=== PATIENT | female | born 1990 | race Two or more races ===

== ENCOUNTER → 2024-12-16 | Outpatient (CLI) | payer BC, SELFPAY ==
[2024-12-16 07:45] LABS: Collection Type, Urine Clean Catch; RBC,Urine 0 /hpf (0-3)
[2024-12-16 08:24] LABS: Glucose Estimated Average 120 mg/dL (80-131); Hemoglobin A1C 5.8 % Hgb (4.8-6.0)
[2024-12-16 08:30] LABS: Folate 19.60 ng/mL (>5.38); Vitamin B12 603 pg/mL (211-911); Vitamin D 25 Hydroxy Total 30.2 ng/mL (7.3-40.2)
[2024-12-16 08:35] LABS: Alanine Aminotransferase 26 U/L (10-49); Albumin, Serum 4.8 gm/dL (3.5-5.0); Albumin/Globulin Ratio 1.9 (1.2-2.2); Alkaline Phosphatase 42 U/L (46-116); Anion Gap 9 (7-16); Aspartate Amino Transferase 15 U/L (0-34); BUN/Creatinine Ratio 16 Ratio (12-20); Bilirubin,Total 0.3 mg/dL (0.3-1.2); Blood Urea Nitrogen 11 mg/dL (9-23); Calcium 9.5 mg/dL (8.3-10.6); Calcium (Corrected) 9.5 mg/dL (8.5-10.1); Carbon Dioxide 28.1 mMol/L (20.0-31.0); Cardiac Risk Estimate 4.8 RATIO (3.7-5.6); Chloride 107 mMol/L (98-107); Cholesterol 184 mg/dL (132-200); Creatinine (Component) 0.7 mg/dL (0.6-1.3); Free T3 3.5 pg/mL (2.3-4.2); Free T4 (Free Thyroxine) 1.23 ng/dL (0.89-1.76); Globulin 2.5 gm/dL (2.3-3.5); Glucose 120 mg/dL (74-106); HDL Cholesterol 38 mg/dL (40-60); LDL Cholesterol,Calculated 119 mg/dL (0-130); Osmolality,Calculated 287 (275-295); Potassium 4.1 mMol/L (3.4-5.1); Sodium 144 mMol/L (136-145); Thyroid Stimulating Hormone 2.75 uIU/mL (0.55-4.78); Total Protein 7.3 gm/dL (5.7-8.2); Triglycerides 137 mg/dL (30-150); eGFR > 60 See Note
[2024-12-16 08:56] LABS: Basophils # (Auto) 0.0 Thou/mm3 (0.0-0.2); Basophils % (Auto) 0 % (0-2.5); Eosinophils # (Auto) 0.2 Thou/mm3 (0.0-0.5); Eosinophils % (Auto) 3 % (0-10); Hematocrit 41.7 % (36.0-46.0); Hemoglobin 13.6 g/dL (12.0-16.0); Immature Granulocytes Auto 0.01 Thou/mm3 (0.00-0.00); Lymphocytes # (Auto) 2.9 Thou/mm3 (1.0-4.8); Lymphocytes % (Auto) 42 % (10-50); Mean Corpuscular HGB Conc 32.6 g/dl (31.0-37.0); Mean Corpuscular Hemoglobin 28.0 pg (25.0-35.0); Mean Corpuscular Volume 86 fL (80-100); Monocytes # (Auto) 0.4 Thou/mm3 (0.0-0.8); Monocytes % (Auto) 6 % (0-12); Neutrophils # (Auto) 3.4 Thou/mm3 (1.8-7.7); Neutrophils % (Auto) 49 % (37-80); Nucleated Red Blood Cell # 0.00 Thou/mm3 (0.00-0.00); Nucleated Red Blood Cell % 0 /100 WBC (0); Platelet Count 282 Thou/mm3 (140-440); RDW Standard Deviation 39.4 fL (36.4-46.3); Red Blood Count 4.85 Miln/mm3 (4.00-5.20); White Blood Count 6.9 Thou/mm3 (3.6-11.0)
[2024-12-16 11:17] LABS: Bacteria,Urine Rare; Bilirubin,Urine Negative (Negative); Blood,Urine Negative (Negative); Clarity,Urine Clear (Clear/Hazy); Color,Urine Lt-Yellow (Lt Yel-Yel); Culture Indicated,Urine Not Indicated; Glucose, Urine Negative (Negative); Ketones,Urine Negative (Negative); Leukocyte Esterase,Urine Negative (Negative); Nitrite,Urine Negative (Negative); PH,Urine 5.5 (5.0-7.0); Protein,Urine Negative (Neg - Trace); Specific Gravity,Urine 1.026 (1.001-1.035); Squamous Epithelial Cell,Urine 8 /hpf (0-5); Urobilinogen,Urine Negative mg/dL (0.0-1.0); WBC,Urine 1 /hpf (0-5)
== END | disposition home or self-care (01) ==
LOC: COPL 06:51
PROVIDERS: PCP Nurse Practitioner; Referring Provider Nurse Practitioner; Visit Provider Nurse Practitioner
DX: Z13.1 Encounter for screening for diabetes mellitus (principal); R53.83 Other fatigue
CPT/HCPCS: 36415; 80053; 80061; 81001; 82306; 82607; 82746; 83036; 84439; 84443; 84481; 85025

== ENCOUNTER → 2025-01-10 | Outpatient (CLI) | payer OTHER, BC, SELFPAY ==
[2025-01-10 12:16] LABS: Thyroid Stimulating Hormone 1.24 uIU/mL (0.55-4.78)
[2025-01-10 12:17] LABS: Follicle Stimulating Hormone 3.06 mIU/mL (See Note)
[2025-01-15 06:20] LABS: Luteinizing Hormone* 6.7 mIU/mL; Prolactin* 16.4 ng/mL
== END | disposition home or self-care (01) ==
PROVIDERS: PCP Physician Assistant; Referring Provider Physician Assistant; Visit Provider Physician Assistant
DX: R30.0 Dysuria (principal); N91.2 Amenorrhea, unspecified
CPT/HCPCS: 36415; 83001; 83002; 84146; 84443; 87086

== ENCOUNTER → 2025-01-28 | Outpatient (CLI) | payer OTHER, BC, SELFPAY ==
--- NOTE | 2025-01-28 16:15 | XR_ITS ---
Examination: Pelvic ultrasound, transabdominal, complete Technique: Transabdominal ultrasound of the pelvis performed using grayscale imaging Date and time of exam: January 28, 2025, 1621 hours INDICATIONS: Amenorrhea several months FINDINGS: Uterus 9.8 cm, uterine body area of fibroid degeneration 15 x 16 x 18 mm. Endometrial stripe 0.4 cm Right ovary 3.8 cm arterial flow 23 x 22 mm cyst. Left ovary 2.7 cm arterial flow to 11 mm follicular cyst IMPRESSION: Uterine body area of fibroid degeneration 15 x 16 x 18 mm Right ovarian simple cyst 23 x 17 x 22 mm
== END | disposition home or self-care (01) ==
LOC: CDIM 16:05
PROVIDERS: Referring Provider Physician Assistant; Visit Provider Physician Assistant
DX: D25.9 Leiomyoma of uterus, unspecified (principal); N83.291 Other ovarian cyst, right side
CPT/HCPCS: 76856

== ENCOUNTER → 2025-05-05 | Outpatient (CLI) | payer OTHER, BC, SELFPAY ==
[2025-05-05 14:45] LABS: Alanine Aminotransferase 65 U/L (10-49); Albumin, Serum 5.0 gm/dL (3.5-5.0); Alkaline Phosphatase 46 U/L (46-116); Anion Gap 12 (7-16); Aspartate Amino Transferase 30 U/L (0-34); BUN/Creatinine Ratio 20 Ratio (12-20); Bilirubin,Direct < 0.1 mg/dL (0.0-0.3); Bilirubin,Total 0.3 mg/dL (0.3-1.2); Blood Urea Nitrogen 12 mg/dL (9-23); Calcium 9.6 mg/dL (8.3-10.6); Carbon Dioxide 26.2 mMol/L (20.0-31.0); Chloride 104 mMol/L (98-107); Creatinine (Component) 0.6 mg/dL (0.6-1.3); Glucose 89 mg/dL (74-106); Osmolality,Calculated 281 (275-295); Phosphorous 4.5 mg/dL (2.4-5.1); Potassium 4.1 mMol/L (3.4-5.1); Sodium 142 mMol/L (136-145); Total Protein 7.5 gm/dL (5.7-8.2); eGFR > 60 See Note
== END | disposition home or self-care (01) ==
LOC: COPL 12:43
PROVIDERS: PCP Internal Medicine; Referring Provider Internal Medicine; Visit Provider Internal Medicine
DX: R74.01 Elevation of levels of liver transaminase levels (principal)
CPT/HCPCS: 36415; 80048; 80076; 84100